=== PATIENT | female | born 1960 | race Caucasian/White ===

== ENCOUNTER 2024-07-28 04:28 | Day surgery (SDC) | payer OTHER ==
[2024-07-21 11:41] VITALS: BMI 44.9
[2024-07-28 12:17] VITALS: TEMP 97.6
[2024-07-28 13:05] VITALS: BP 107/53; PULSE 64; RESP 17
== END 2024-07-28 13:30 | disposition home or self-care (01) ==
LOC: JASU-ENDO 04:28
PROVIDERS: ATTEND Student in an Organized Health Care Education/Training Program
PROC: 0DBH8ZX Excision of Cecum, Via Natural or Artificial Opening Endoscopic, Diagnostic (ICD-10-PCS; principal; 2024-07-28 10:30)
DX: Z12.11 Encounter for screening for malignant neoplasm of colon (principal); D12.0 Benign neoplasm of cecum; K57.30 Diverticulosis of large intestine without perforation or abscess without bleeding
CPT/HCPCS: 88305-TC

== ENCOUNTER 2025-03-21 11:04 | Emergency (ER) | payer OTHER ==
[2025-03-21 11:19] VITALS: BP 130/56; PULSE 80; RESP 20; TEMP 98; BMI 46.4
[2025-03-21] MEDS ORDERED: KETOROLAC TROMETHAMINE 30 MG/1 ML VIAL ONE (11:55)
[2025-03-21] MEDS ORDERED: ACETAMINOPHEN 500 MG TABLET (FP) ONE (11:55)
[2025-03-21] MEDS ORDERED: METHOCARBAMOL 500 MG TABLET ONE (11:55)
[2025-03-21] MEDS: ACETAMINOPHEN 500 MG TABLET (FP) PO ONE (11:59)
[2025-03-21] MEDS: METHOCARBAMOL 500 MG TABLET PO ONE (11:59)
[2025-03-21] MEDS: KETOROLAC TROMETHAMINE 30 MG/1 ML VIAL IM ONE (11:59)
== END 2025-03-21 14:00 | disposition home or self-care (01) ==
LOC: JERFT 11:04
PROC: 3E0233Z Introduction of Anti-inflammatory into Muscle, Percutaneous Approach (ICD-10-PCS; principal; 2025-03-21)
DX: M54.50 Low back pain, unspecified (principal); G89.29 Other chronic pain
CPT/HCPCS: 72100-TC-FY; 99284-25